=== PATIENT | male | born 1955 | race Caucasian/White ===

== ENCOUNTER 2017-04-01 08:58 | Day surgery (SDC) | payer BC ==
[~2017-04-01] VITALS: Ht 177.8 cm
--- NOTE | 2017-04-03 08:22 | OR ---
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 PREOPERATIVE DIAGNOSES: 1. Lumbar disk degeneration. 2. Lumbosacral neuritis. POSTOPERATIVE DIAGNOSES: 1. Lumbar disk degeneration. 2. Lumbosacral neuritis. PROCEDURE PERFORMED: Right L4-L5 and L5-S1 transforaminal steroid injection. INDICATIONS FOR PROCEDURE: ANESTHESIA: Local without sedation. ESTIMATED BLOOD LOSS: Zero. COMPLICATIONS: None immediately evident. DESCRIPTION OF THE PROCEDURE: After the patient was seen in the preoperative area, vitals signs were taken. Prior to the procedure, the risks, benefits, and alternative therapies were discussed at length. Patient consent was obtained and updated. The patient was taken to the fluoroscopy suite and placed on the fluoroscopy table in the prone position. Pressure points were padded to comfort, monitors applied, and a timeout performed. The patient's lumbosacral area was then prepped and draped sterilely using ChloraPrep. C-arm fluoroscopy was then brought in to identify the transverse process of L4 and L5 on the right side. Lidocaine 1%, approximately 2 mL, was used to anesthetize the skin and underlying subcutaneous tissue. A 3.5-inch curved-tip 22-gauge spinal needle then was entered and advanced to make contact with the inferomedial portion of the transverse process on the right. ADMIT: 04/01/2017 RM/LOC: [facility] MR#: [id number] [address] [address] [place] [address] Operative/Delivery Room Report SEX: M AGE: 62 : 1955 The needle was then worked off in a corkscrew method and placed into the uppermost portion of the neural foramina. A total of 2 mL of Isovue was instilled showing excellent epidural, as well as nerve root sheath, spread. The patient had reproduction of his typical pain. The patient then received 2 mL of 80 mg of Depo Medrol and 0.25% Marcaine plain. The patient tolerated the procedure well, had no complications, and was taken to the PACU. PLAN: The patient was examined after 20 minutes and had 80% reduction of pain. Discharge instructions were given, followup scheduled. 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 Kiko Mcleod MD/ martha JOB #: [id number] CC: Kiko Mcleod MD, Attending Physician Archie Radford MD, Family Physician
== END 2017-04-01 10:27 | disposition home or self-care (01) ==
LOC: SSS 08:58
PROC: 3E0R3BZ Introduction of Anesthetic Agent into Spinal Canal, Percutaneous Approach (ICD-10-PCS; principal; 2017-04-01)
PROC: 3E0R33Z Introduction of Anti-inflammatory into Spinal Canal, Percutaneous Approach (ICD-10-PCS; principal; 2017-04-01)
DX: G89.29 Other chronic pain (principal); M51.17 Intervertebral disc disorders with radiculopathy, lumbosacral region; M48.06 Spinal stenosis, lumbar region; I10 Essential (primary) hypertension; Z79.899 Other long term (current) drug therapy; Z98.890 Other specified postprocedural states